=== PATIENT | female | born 1970 | race Caucasian/White ===

== ENCOUNTER 2016-06-29 17:00 | Emergency (ER) | payer OTHER ==
[~2016-06-29] VITALS: Ht 165.1 cm; Wt 137.4 kg
[~2016-06-29 17:00] MED LIST: ADVIL200 MG PO; BUTALBITAL-APA1 EACH PO; CLARITIN-D 21 TABLET PO; CYANOCOBAL1000 MCG/2 IM; ESTROGEN-METHY1 EAC3 PO; MARTEN-TAB 3251 EACH PO; MULTIVITAMIN1 EAC2 PO; NEXIUM40 MG PO; SKELAXIN800 MG PO; TYLENOL EXTRA500 MG PO; VITAMIN D5000 UNIT PO
[2016-06-29] MEDS ORDERED: PREMARIN0.9 MG PO (20:12)
[2016-06-29] MEDS ORDERED: ULTRAM50 MG PO (20:25)
[2016-06-29] MEDS ORDERED: ZOFRAN ODT4 MG PO (20:25)
[2016-06-29 20:36] VITALS: BP 133/98
== END 2016-06-29 20:37 | disposition home or self-care (01) ==
LOC: EME 17:00
DX: S06.0X1A Concussion with loss of consciousness of 30 minutes or less, initial encounter (principal); W18.09XA Striking against other object with subsequent fall, initial encounter; Z98.1 Arthrodesis status
CPT/HCPCS: 99281; 99285

== ENCOUNTER 2017-02-04 12:42 | Emergency (ER) | payer OTHER ==
[~2017-02-04] VITALS: Ht 165.1 cm; Wt 135.4 kg
[~2017-02-04 12:42] MED LIST changes: +PREMARIN0.9 MG PO; +ULTRAM50 MG PO; +ZOFRAN ODT4 MG PO
[2017-02-04 15:06] LABS: HEMATOCRIT 42.8 % (36.0-46.0); MCH 28.4 PG (29.0-34.0); MCV 88.6 FL (83-99); MEAN PLAT.VOLUME 11.4 uM^3 (9.5-12.4); PLATELET COUNT 231 K/uL (156-360); RBC DIS.WIDTH-CV 12.4 % (11.8-14.6); RBC DIS.WIDTH-SD 40.2 % (39-53); RED BLOOD COUNT 4.83 M/uL (3.80-5.20); WHITE BLOOD COUNT 6.2 K/uL (4.1-10.2)
[2017-02-04 15:16] LABS: CHLORIDE 107 mEq/L (99-109); POTASSIUM 4.4 mEq/L (3.7-5.4); SODIUM 141 mEq/L (136-147)
[2017-02-04 15:17] LABS: GLUCOSE 129 mg/dL (70-99)
[2017-02-04 15:19] LABS: ANION GAP 8 MEQ/L (2-14)
[2017-02-04 15:21] LABS: GFR ESTIMATE (CALCULATED) > 59 mL/min/
[2017-02-04 15:22] LABS: UREA NITROGEN (BUN) 10 mg/dL (9-23)
[2017-02-04 15:28] LABS: TROP-I INTERPRETATION NEGATIVE; TROPONIN-I < 0.01 ng/mL (0.0-0.30)
[2017-02-04 16:31] VITALS: BP 113/52
== END 2017-02-04 16:54 | disposition home or self-care (01) ==
LOC: EME 12:42
DX: R51 Headache (principal); M79.7 Fibromyalgia; K21.9 Gastro-esophageal reflux disease without esophagitis; Z88.1 Allergy status to other antibiotic agents; Z88.5 Allergy status to narcotic agent
CPT/HCPCS: 70450; 71020; 80048; 84484; 85027; 93005; 99281; 99284

== ENCOUNTER → 2017-06-08 | Outpatient (CLI) | payer OTHER | END | disposition home or self-care (01) | DX: R13.10 Dysphagia, unspecified (principal); Z87.19 Personal history of other diseases of the digestive system; Z98.84 Bariatric surgery status | CPT/HCPCS: 92611 GN; G8996 GN; G8997 GN; G8998 GN ==